=== PATIENT | female | born 1990 | race Two or more races ===

== ENCOUNTER 2019-11-23 17:33 | Emergency (ER) | payer MEDICAID, OTHER ==
[2019-11-23 18:51] VITALS: BP 112/63
== END 2019-11-23 19:25 | disposition home or self-care (01) ==
LOC: ER 17:33
DX: L01.00 Impetigo, unspecified (principal)

== ENCOUNTER 2020-03-12 11:16 | Emergency (ER) | payer MEDICAID ==
[~2020-03-12] VITALS: Ht 165.1 cm; Wt 72.6 kg
[2020-03-12 12:24] VITALS: BP 105/66
== END 2020-03-12 13:15 | disposition home or self-care (01) ==
LOC: ER 11:16
DX: L01.00 Impetigo, unspecified (principal)

== ENCOUNTER 2024-03-10 11:43 | Inpatient (IN) | payer MEDICAID ==
[~2024-03-10] VITALS: Ht 167.6 cm; Wt 70.3 kg
[2024-03-10 13:17] LABS: Basophils # (auto) 0.1 10 ^3/uL (0-0.2); Basophils % (auto) 0.6 % (0.0-2.0); Eosinophils # (auto) 0 10 ^3/uL (0-0.8); Eosinophils % (auto) 0.3 % (0.0-7.0); Hematocrit 41.3 % (36.0-46.0); Hemoglobin 14.5 g/dL (12.2-16.2); Lymphocytes # (auto) 0.6 10 ^3/uL (0.4-5.4); Lymphocytes % (auto) 5.8 % (10.0-50.0); Mean Corpuscular Hemoglobin 32.2 pg (28.0-32.0); Mean Corpuscular Hgb Conc. 35.1 g/dL (32.0-36.0); Mean Corpuscular Volume 91.6 fL (80.0-100.0); Monocytes # (auto) 0.5 10 ^3/uL (0-1.3); Monocytes % (auto) 4.8 % (0.0-12.0); Neutrophils # (auto) 9.8 10 ^3/uL (1.6-8.6); Neutrophils % (auto) 88.5 % (37.0-80.0); Platelet Count (auto) 241 10^3/uL (140-450); Red Cell Distribution Width 12.9 % (11.8-14.3); White Blood Cell 11.1 10^3/uL (4.4-10.8)
[2024-03-10 13:38] LABS: Alanine Aminotransferase 14 U/L (7-40); Alkaline Phosphatase 56 U/L (46-116); Calcium 9.1 mg/dL (8.7-10.4); Carbon Dioxide 22 mmol/L (20-31); Chloride 109 mmol/L (98-107)
[2024-03-10 13:39] LABS: Albumin 4.3 g/dL (3.2-4.8); Anion Gap 9 (5-15); Aspartate Aminotransferase 15 U/L (13-40); BUN/Creatinine Ratio 14.5 (10.0-20.0); Bilirubin, Total 1.1 mg/dL (0.2-1.0); Blood Urea Nitrogen 10 mg/dL (9-23); Glucose 102 mg/dL (74-106); Lipase 26 U/L (12-53); Potassium 3.4 mmol/L (3.5-5.1); Sodium 140 mmol/L (136-145); Total Protein 6.2 g/dL (5.7-8.2)
[2024-03-10 15:11] LABS: Urine Bacteria MOD /hpf (None Seen); Urine Blood 2+ /uL (Negative); Urine Clarity Turbid (Clear); Urine Color Yellow (Yellow); Urine Mucus MODERATE (None Seen); Urine Protein, UAD 1+ (Negative); Urine Specific Gravity 1.043 (1.001-1.035); Urine Urobilinogen 6 mg/dL (Negative); Urine WBC 4 /hpf (0 - 5)
[2024-03-10 15:17] LABS: Amphetamine Screen, Urine Neg (NEGATIVE); Benzodiazephine Screen, Urine Neg (NEGATIVE)
[2024-03-10 15:18] LABS: Barbiturate Scree,Urine Neg (NEGATIVE); Cannabinoid Screen, Urine Neg (NEGATIVE); Cocaine Screen, Urine Neg (NEGATIVE); Opiate Scree,Urine Neg (NEGATIVE); Phencyclidine Screen, Urine Neg (NEGATIVE)
[2024-03-10] MEDS ORDERED: TEMAZEPAM 15 MG CAP PO PRN (16:00)
[2024-03-10] MEDS ORDERED: ONDANSETRON HCL 4 MG/2 ML VIAL IV PRN (16:00)
[2024-03-10] MEDS: SODIUM CHLORIDE 0.9% 1,000 ML IV ONE (16:30)
[2024-03-10] MEDS: HYDROcodone-ACET 5/325MG TAB PO PRN (16:38)
[2024-03-10] MEDS: SOD CHL 0.9%/ KCL 20MEQ 1,000 ML IV ONE (17:27)
[2024-03-10] MEDS: cefTRIAXone 1GM/50ML D5W 50 ML IV ONE (17:29)
[2024-03-10] MEDS: KETOROLAC TROMETH 30 MG/ML 1ML VIAL IV ONE (17:51)
[2024-03-10 19:10] VITALS: PULSE 71; RESP 18; O2SAT 98
[2024-03-11] VITALS (7 sets, daily range): BP systolic 97–107; BP diastolic 54–69; PULSE 16–75; RESP 12–19; TEMP 98–98.5; O2SAT 96–100
[2024-03-11] MEDS: ACETAMINOPHEN 325 MG TAB PO PRN (04:45)
[2024-03-11 07:02] LABS: Basophils # (auto) 0 10 ^3/uL (0-0.2); Basophils % (auto) 0.2 % (0.0-2.0); Eosinophils # (auto) 0.1 10 ^3/uL (0-0.8); Eosinophils % (auto) 1.7 % (0.0-7.0); Hematocrit 34.8 % (36.0-46.0); Lymphocytes # (auto) 0.8 10 ^3/uL (0.4-5.4); Lymphocytes % (auto) 15.7 % (10.0-50.0); Mean Corpuscular Hemoglobin 31.7 pg (28.0-32.0); Mean Corpuscular Hgb Conc. 34.5 g/dL (32.0-36.0); Mean Corpuscular Volume 91.8 fL (80.0-100.0); Monocytes # (auto) 0.4 10 ^3/uL (0-1.3); Monocytes % (auto) 8.4 % (0.0-12.0); Neutrophils # (auto) 3.9 10 ^3/uL (1.6-8.6); Platelet Count (auto) 186 10^3/uL (140-450); Red Blood Cells 3.79 10^6/uL (4.0-5.20); Red Cell Distribution Width 13.2 % (11.8-14.3); White Blood Cell 5.2 10^3/uL (4.4-10.8)
[2024-03-11 07:24] LABS: Chloride 112 mmol/L (98-107); Potassium 3.5 mmol/L (3.5-5.1); Sodium 138 mmol/L (136-145)
[2024-03-11 07:25] LABS: Anion Gap 6 (5-15); Calcium 8.3 mg/dL (8.7-10.4); Carbon Dioxide 20 mmol/L (20-31)
[2024-03-11 07:30] LABS: Glucose 87 mg/dL (74-106)
[2024-03-11 07:31] LABS: BUN/Creatinine Ratio 8.5 (10.0-20.0); Blood Urea Nitrogen < 5 mg/dL (9-23)
[2024-03-11] MEDS: cefTRIAXone 1GM/50ML D5W 50 ML IV SCH (09:48)
[2024-03-11] MEDS: PANTOPRAZOLE 40 MG TAB PO ONE (10:43)
[2024-03-11] MEDS: DOXYCYCLINE 100 MG TAB/CAP PO ONE (17:56)
[2024-03-11] MEDS: DOXYCYCLINE 100 MG TAB/CAP PO SCH (21:02)
[2024-03-12 01:00] VITALS: BP 104/61; PULSE 76; RESP 19; TEMP 97.9; O2SAT 99
[2024-03-12] MEDS: PANTOPRAZOLE 40 MG TAB PO SCH (06:11)
[2024-03-12 08:00] VITALS: RESP 16
[2024-03-12 09:00] VITALS: BP 109/54; PULSE 85; RESP 18; TEMP 97.6; O2SAT 95
[2024-03-12 13:00] VITALS: BP 111/69; PULSE 64; RESP 16; TEMP 98.4; O2SAT 99
[2024-03-12] MEDS ORDERED: DOXY-111 PO (13:20)
[2024-03-14 08:06] LABS: RPR Non Reactive (Non Reactive)
== END 2024-03-12 16:20 | disposition home or self-care (01) | DRG 249 ==
LOC: ER 11:43 → OVERFLOW 15:56 → WEST WING 03-11 03:30
PROVIDERS: ADMIT Internal Medicine; ATTEND Internal Medicine
DX: K52.9 Noninfective gastroenteritis and colitis, unspecified (principal); N30.01 Acute cystitis with hematuria; N71.9 Inflammatory disease of uterus, unspecified; K42.9 Umbilical hernia without obstruction or gangrene; N73.9 Female pelvic inflammatory disease, unspecified; Z98.891 History of uterine scar from previous surgery; Z97.5 Presence of (intrauterine) contraceptive device
CPT/HCPCS: 36415; 74176; 76856; 80048; 80053; 80307; 81001; 82306; 82550; 82607; 83605; 83690; 84443; 84702; 85025; 86141; 86592; 86703; 86706; 86803; G0378; J1885

== ENCOUNTER 2024-09-09 09:04 | Day surgery (SDC) | payer MEDICAID ==
[2024-09-08 09:21] LABS: Basophils # (auto) 0 10 ^3/uL (0-0.2); Basophils % (auto) 0.5 % (0.0-2.0); Eosinophils # (auto) 0.1 10 ^3/uL (0-0.8); Hematocrit 42.1 % (36.0-46.0); Hemoglobin 14.5 g/dL (12.2-16.2); Lymphocytes # (auto) 2.5 10 ^3/uL (0.4-5.4); Lymphocytes % (auto) 35.6 % (10.0-50.0); Mean Corpuscular Hemoglobin 31.8 pg (28.0-32.0); Mean Corpuscular Hgb Conc. 34.4 g/dL (32.0-36.0); Mean Corpuscular Volume 92.5 fL (80.0-100.0); Monocytes # (auto) 0.3 10 ^3/uL (0-1.3); Monocytes % (auto) 4.9 % (0.0-12.0); Platelet Count (auto) 245 10^3/uL (140-450); Red Blood Cells 4.56 10^6/uL (4.0-5.20)
[2024-09-08 09:54] LABS: INR 1.06 (0.9-1.15); Partial Thromboplastin Time 29.8 SEC (24.5-34.5); Prothrombin Time 11.2 sec (9.3-11.8)
[2024-09-08 10:23] LABS: Alanine Aminotransferase 13 U/L (7-40); Albumin 4.7 g/dL (3.2-4.8); Alkaline Phosphatase 57 U/L (46-116); Anion Gap 5 (5-15); BUN/Creatinine Ratio 15.3 (10.0-20.0); Blood Urea Nitrogen 11 mg/dL (9-23); Calcium 9.9 mg/dL (8.7-10.4); Carbon Dioxide 27 mmol/L (20-31); Glucose 93 mg/dL (74-106); Potassium 4.4 mmol/L (3.5-5.1); Sodium 139 mmol/L (136-145); Total Protein 6.8 g/dL (5.7-8.2)
[2024-09-08 10:24] LABS: Bilirubin, Total 0.7 mg/dL (0.2-1.0)
[2024-09-08 10:25] LABS: Aspartate Aminotransferase 10 U/L (13-40); Chloride 107 mmol/L (98-107)
[~2024-09-09] VITALS: Ht 167.6 cm; Wt 61.2 kg
[~2024-09-09 09:04] MED LIST: CYAN100T7 PO; PANT40TA2 PO
[2024-09-09] MEDS: fentaNYL CITRATE 100 MCG/2 ML VL ONE (13:05)
[2024-09-09] MEDS: MIDAZOLAM HCL 2MG/2ML 2ml VIAL (1mg/ml) ONE (13:05)
[2024-09-09 13:16] VITALS: TEMP 98
--- NOTE | 2024-09-09 13:16 | DVHNC2 ---
Procedure - DATE OF PROCEDURE:09/09/2024 PROCEDURE PERFORMED BY: ARUNA ESPINOZA MD REFERRING PROVIDER: Dr Nichols PROCEDURE PERFORMED: 1. ESOPHAGOGASTRODUODENOSCOPY WITH MODERATE SEDATION 2. ESOPHAGOGASTRODUODENOSCOPY WITH BIOPSY PRE-PROCEDURE DIAGNOSIS: 1. Epigastric abdominal pain 2. History of NSAID use POSTPROCEDURE DIAGNOSIS: 1. Normal duodenum to 2nd portion 2. Mild erosive gastritis biopsies taken 3. Mild erosive esophagitis INDICATIONS FOR PROCEDURE: The patient is a 34-year-old female with a history of epigastric abdominal pain who presents for outpatient endoscopy. MEDICATIONS USED:6 mg of Versed and 50mcg of fentanyl IV were given in incremental doses DETAILS OF THE PROCEDURE: Informed consent was obtained after risks, benefits, and alternatives were discussed at length with the patient. The patient gave consent to the procedure as well as the medication used for sedation. The patient was placed in left lateral decubitus position. An Olympus endoscope was inserted into the oropharynx and advanced into the esophagus, then into the stomach, then into the duodenal bulb and duodenum. The duodenal bulb and duodenum were normal. Biopsies were taken given the patient's symptoms of abdominal pain. The scope was then withdrawn. The stomach showed mild erosive gastritis. Biopsies were taken to be sent for pathology. Retroflexion showed no abnormalities. The scope was then withdrawn. Patient had LA grade A erosive esophagitis, the Z-line was at 38 cm. The scope was then withdrawn. Mid and proximal esophagus was normal in appearance. The patient tolerated the proce dure well. IMPRESSION: 1. Mild erosive esophagitis 2. Mild erosive gastritis RECOMMENDATIONS: 1. Follow up with biopsy results 2. Anti-reflux precautions 3. Follow-up in GI clinic 4. Avoid aspirin, NSAIDs, spicy food, caffeine, tomatoes, citrus. 5. Patient should be on a proton pump inhibitor daily 6. Consider further workup for dysphagia if abdominal pain persists I WOULD LIKE TO THANK DR. Nichols FOR THIS REFERRAL ARUNA ESPINOZA MD Sep 09, 2024 13:16
[2024-09-09 14:23] VITALS: BP 107/74; PULSE 70; RESP 15; O2SAT 100
== END 2024-09-09 14:30 | disposition home or self-care (01) ==
LOC: GI 09:04
PROVIDERS: ATTEND Specialist
DX: R10.13 Epigastric pain (principal); K29.50 Unspecified chronic gastritis without bleeding; K21.00 Gastro-esophageal reflux disease with esophagitis, without bleeding; F17.210 Nicotine dependence, cigarettes, uncomplicated; Z86.2 Personal history of diseases of the blood and blood-forming organs and certain disorders involving the immune mechanism; Z98.890 Other specified postprocedural states
CPT/HCPCS: 36415; 43239; 80053; 84702; 85025; 85610; 85730; 88305; 88312; 88342; J2250; J3010; 99152

== ENCOUNTER 2024-09-20 10:53 | Emergency (ER) | payer MEDICAID ==
[~2024-09-20] VITALS: Ht 160 cm; Wt 59.2 kg
[2024-09-20 12:52] VITALS: BP 107/70; PULSE 71; RESP 16; TEMP 98; O2SAT 99
[2024-09-20] MEDS: ceFAZolin IM 1GM/2.5ML STERILE WATER IM ONE (13:15)
[2024-09-20] MEDS: LIDOCAINE 1% HCL (LOCAL ANESTH.) INJ 20ML MDV ID ONE (13:15)
[2024-09-20] MEDS: cefTRIAXone SOD 1,000 MG VL IM ONE (14:21)
[2024-09-20] MEDS: KETOROLAC TROMETH 30 MG/ML 1ML VIAL IM ONE (14:21)
[2024-09-20] MEDS ORDERED: ACET500T58 PO (15:19)
[2024-09-20] MEDS ORDERED: CIPR-173 PO (15:19)
--- NOTE | 2024-09-20 15:20 | ED.PDOC ---
Eye-HPI HPI Comments A 34-year-old female with a history of gastritis and anemia presents with a chief complaint of a possible abscess behind the left earlobe. Patient complains of pain that started three days ago. Aggravated a touch and patient reports pain radiates to the left side of her face.. Denies blunt trauma (hand blow to the ear, fall, direct hit) Denies penetrating trauma (Q-tip use, match-stick, gunshot wound, welding spark) Denies ear trauma Denies barotrauma Denies blast injury Denies air travel Denies scuba diving Denies hearing loss Denies persistent ringing in the ear Denies fever chills night sweats unintentional weight loss Denies nausea vomiting severe headache or recent vision changes Chief Complaint: Headache Time Seen by MD: 11:26 Primary Care Provider: ELKIN Greenberg Notes: Nurses Notes, Medications, Allergies Allergies: Coded Allergies: NO KNOWN ALLERGIES (Unverified , 11/23/19) Home Meds Reported Medications Cyanocobalamin (Vitamin B12) Unknown Strength Tab, PO, TAB 09/08/24 Pantoprazole Sodium Sesquihydr (Protonix) 40 Mg Tab, 40 MG PO DAILY, #30 TAB 09/08/24 Information Source: Patient Mode of Arrival: Ambulatory Past Medical History PAST MEDICAL HISTORY: Denies 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 2 x 3 cm abscess. Fluctuant. Tender to palpation. No signs of mastoiditis. Mastoiditis nontender.) Neck: Full Range of Motion, Non-Tender, Normal, Normal Inspection Respiratory: Chest Non-Tender, Lungs Clear, No Accessory Muscle Use, No Respiratory Distress, Normal Breath Sounds Cardiovascular: No Edema, No JVD, No Murmur, No Gallop, Normal Peripheral Pu lses, Regular Rate/Rhythm Breast Exam: Deferred Gastrointestinal: No Organomegaly, Non Tender, No Pulsatile Mass, Normal Bowel Sounds, Soft Genitalia: Deferred Pelvic: Deferred Rectal: Deferred Extremities: No calf tenderness, Normal capillary refill, Normal inspection, Normal range of motion, Non-tender, No pedal edema Musculoskeletal : Apperance: Normal Neurologic: Alert, 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 Was a procedure done?: Yes Sedation Sedation?: No Incision and Drainage Incision and Drainage: Abscess Location Left posterior earlobe Anesthetic: Lidocaine Preparation: Betadine, Saline Incision and Wound: Pus Informed consent obtained: Yes Risks/benefits/alt described: Yes EENT DIFF Eye: Other X-Ray, Labs, Meds, VS Vital Signs Date Time Temp Pulse Resp B/P (MAP) Pulse Ox O2 Delivery O2 Flow Rate FiO2 09/20/24 12:52 98.0 71 16 107/70 (82) 99 98.0 09/20/24 12:52 71 16 99 Room Air 09/20/24 11:30 98.0 71 16 107/70 (82) 99 98.0 Current Medications Medications (Trade) Dose Ordered Sig/Zackery Route Start Time Stop Time Status Last Admin Cefazolin Sodium (Ancef Intramuscular) 1 gm ONCE ONCE IM 09/20/24 13:15 09/20/24 14:18 DC 09/20/24 13:15 Lidocaine HCl (Xylocaine 1%) 4 ml ONCE ONCE ID 09/20/24 13:15 09/20/24 13:16 DC 09/20/24 13:15 Ceftriaxone Sodium (Rocephin) 1,000 mg ONCE ONCE IM 09/20/24 14:30 09/20/24 14:31 DC 09/20/24 14:21 Ketorolac Tromethamine (Toradol Injection) 30 mg ONCE ONCE IM 09/20/24 14:30 09/20/24 14:31 DC 09/20/24 14:21 X-Ray, Labs, Meds, VS Comment This patient presents with signs and symptoms consistent with a cutaneous abscess behind the ear lobe. The abscess is localized without any evidence of deep soft tissue infection based on physical examination. The patient required incision and drainage. Differential diagnosis considered but not limited to: abscess, folliculitis, cellulitis. I also considered deep space infection, necrotizing fasciitis, sepsis, however, this is less likely as the patient does not have rapid expanding erythema or pain out of proportion to suggest necrotizing fasciitis. There is no evidence of sepsis on both a review of their vitals and clinical exam. No mastoiditis. Procedure Note: Verbal informed consent was obtained from the patient. I discussed the indications, benefits, alternatives and complications to performing an incision and drainage. The patient understands the risks include, but are not limited to scarring, underlying structure injury, bleeding, nerve injury, new infection, and resultant disability. The skin overlying the abscess was prepared with B etadine The skin surrounding the abscess was locally anesthetized using 1% Lidocaine An incision using a number 11 blade scalpel was made overlying the abscess. The incision was 0.5 cm long. Incision and drainage was successful. Careful exploration of the abscess cavity demonstrated no foreign body. The wound was then dressed with sterile gauze. The wound was hemostatic at the conclusion of the procedure. The patient did not appear to suffer any complications as a result of the procedure. The patient was given ciprofloxacin 300 mg Q 8 x 10 days and will f/u with PMD 3-5 days or return to the ER sooner if it worsens. The patient was counseled in regard to the diagnosis and management of the condition and verbalized understanding of this. The patient understands to return to the ER or seek immediate medical attention if the symptoms worsen. Time of 1ST Reevaluation: 15:14 Reevaluation 1ST: Improved Patient Education/Counseling: Diagnosis, Treatment Family Education/Counseling: Diagnosis, Treatment Departure 1 Departure Time of Disposition: 15:17 Impression: Primary Impression: Abscess, earlobe Qualified Codes: H60.02 - Abscess of left external ear Disposition: 01 HOME / SELF CARE / HOMELESS Condition: Fair e-Prescriptions Acetaminophen (Acetaminophen) 500 Mg Tab 500 MG PO Q6HP PRN for 10 Days, #40 TAB 0 Refills Prov: JOHN BATISTA ELECTRICAL SIGN WIRER 09/20/24 Ciprofloxacin Hcl (Cipro) 500 Mg Tab 1 TAB PO BID for 10 Days, #20 TAB 0 Refills Prov: JOHN BATISTA ELECTRICAL SIGN WIRER 09/20/24 Critical Care Note Critical Care Time?: No Stability Stability form required: No Heart Score Heart Score: Heart Score Response (Comments) Value History N/A 0 EKG N/A 0 Age N/A 0 Risk Factors N/A 0 Troponin N/A 0 Total 0 JOHN BATISTA ELECTRICAL SIGN WIRER Sep 20, 2024 15:20
== END 2024-09-20 15:25 | disposition home or self-care (01) ==
LOC: ER 11:04
DX: H60.02 Abscess of left external ear (principal); Z98.890 Other specified postprocedural states; Z79.899 Other long term (current) drug therapy
CPT/HCPCS: 69000; 96372; 99284; J0690; J0696; J1885; J2003

== ENCOUNTER → 2024-10-02 | Outpatient (CLI) | payer MEDICAID ==
[~2024-10-02] MED LIST changes: +ACET500T58 PO; +CIPR-173 PO
== END | disposition home or self-care (01) ==
LOC: LAB 12:08
PROVIDERS: ATTEND Internal Medicine
DX: E53.8 Deficiency of other specified B group vitamins (principal)
CPT/HCPCS: 82607

== ENCOUNTER 2024-12-01 00:36 | Emergency (ER) | payer MEDICAID ==
[~2024-12-01] VITALS: Ht 160 cm; Wt 61.0 kg
--- NOTE | 2024-12-01 01:03 | ED.PDOC ---
History of Present Illness(SKN HPI Comments PT PRESENTED TO ED FOR RIGHT INGUINAL AREA PAIN AND SACRAL LUMP WITH DRAINAGE X4 DAY. Time Seen by MD: 00:55 Primary Care Provider: ELKIN History of Present Illness: Nurses Notes, Medications, Allergies Allergies: Coded Allergies: NO KNOWN ALLERGIES (Unverified , 11/23/19) Home Meds Active Scripts Ibuprofen (Ibuprofen) 800 Mg Tab, 800 MG PO Q8HP PRN for 5 Days, #15 TAB Prov:SIMA CAPONE SHEETMETAL TRADES WORKER 12/01/24 Doxycycline Hyclate (Doxycycline Hyclate) 100 Mg Cap, 100 MG PO BID for 7 Days, #14 CAP Prov:SIMA CAPONE SHEETMETAL TRADES WORKER 12/01/24 Acetaminophen (Acetaminophen) 500 Mg Tab, 500 MG PO Q6HP PRN for 10 Days, #40 TAB 0 Refills Prov:JOHN BATISTA EXHIBITIONS AND COLLECTIONS MANAGER 09/20/24 Ciprofloxacin Hcl (Cipro) 500 Mg Tab, 1 TAB PO BID for 10 Days, #20 TAB 0 Refills Prov:JOHN BATISTA EXHIBITIONS AND COLLECTIONS MANAGER 09/20/24 Reported Medications Cyanocobalamin (Vitamin B12) Unknown Strength Tab, PO, TAB 09/08/24 Pantoprazole Sodium Sesquihydr (Protonix) 40 Mg Tab, 40 MG PO DAILY, #30 TAB 09/08/24 Information Source: Patient Past Medical History PAST MEDICAL HISTORY: Denies 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 Family History Family History: Reviewed,noncontributory to illness, No family hx of Cancer, No family hx of DM, No family hx of Heart karel, No family hx of HTN, No family hx ofKidney karel, No family hx of Liver karel, No family hx of Lung karel, No family hx of Stroke Social History Smoker: Non-Smoker Alcohol: Denies ETOH Use Drugs: Denies Drug Use Lives In: Home Constitutional: denies: chills, diaphoresis, fatigue, fever, malaise, sweats, weakness, others EENTM: denies: blurred vision, double vision, ear bleeding, ear discharge, ear drainage, ear pain, ear ringing, eye pain, eye redness, hearing loss, mouth pain, mouth swelling, nasal discharge, nose bleeding, nose congestion, nose pain, photophobia, tearing, throat pain, throat swelling, voice changes, others Respiratory: denies: cough, hemoptysis, orthopnea, SOB at rest, shortness of breath, SOB with excertion, stridor, wheezing, others Cardiovascular: denies: chest pain, dizzy spells, diaphoresis, Dyspnea on exertion, edema, irregular heart beat, left arm pain, lightheadedness, palpitations, PND, syncope, others Gastrointestinal: denies: abdomen distended, abdominal pain, blood streaked bowels, constipated, diarrhea, dysphagia, difficulty swallowing, hematemesis, melena, nausea, poor appetite, poor fluid intake, rectal bleeding, rectal pain, vomiting, others Genitourinary: denies: abnormal vagina bleeding, burning, dyspareunia, dysuria, flank pain, frequency, hematuria, incontinence, pain, , vagina discharge, urgency, others Neurological: denies: dizziness, fainting, headache, left sided numbness, left sided weakness, numbness, paresthesia, pre-existing deficit, right sided numbness, right sided weakness, seizure, speech problems, tingling, tremors, weakness, others Musculoskeletal: denies: back pain, gout, joint pain, joint swelling, muscle pain, muscle stiffness, neck pain, others Integumetry: reports: lumps (COCCYX AREA AND RIGHT INGUINAL); denies: bruises, change in color, change in hair/nails, dryness, laceration, lesions, rash, wounds, others Allergic/Immunocompromised: denies: Difficulty Healing, Frequent Infections, Hives, Itching, others Hematologic/Lymphatic: denies: anemia, blood clots, easy bleeding, easy bruising, swollen glands, others Endocrine: denies: excessive hunger, excessive sweating, excessive thirst, excessive urination, flushing, intolerance to cold, intolerance to heat, unexplained weight gain, unexplained weight loss, others Psychiatric: denies: anxiety, bipolar disorder, depression, hopeless, panic disorder, schizophrenia, sleepless, suicidal, others Physical Exam General Appearance: No Apparent Distress, Normal HEENT: Pharynx Normal Neck: Full Range of Motion, Non-Tender Respiratory: Lungs Clear, No Respiratory Distress, Normal Breath Sounds Cardiovascular: No Edema, No JVD, No Murmur, No Gallop, Normal Peripheral Pulses, Regular Rate/Rhythm Breast Exam: Deferred Gastrointestinal: No Organomegaly, Non Tender, No Pulsatile Mass, Normal Bowel Sounds, Soft Genitalia: Deferred Pelvic: Deferred Rectal: Deferred Extremities: No calf tenderness, Normal capillary refill, Normal inspection, Normal range of motion, Non-tender, No pedal edema Musculoskeletal : Apperance: Normal Neurologic: Alert, system controller II-XII nml as Tested, No Motor Deficits, Normal Affect, Normal Mood, No Sensory Deficits Cerebellar Function: Normal Reflexes: Normal Skin: Dry, Normal Color, Warm, Wounds (PILONIDAL CYST TENDER ON PALPATION NON FLUCTUANT TRACE ERYTHEMA NO CENTRAL OPENING NO NOTED STREAKING NO NOTED DRAINAGE) Lymphatic: Inguinal Node Tender (R), No Adenopathy Was a procedure done? Was a procedure done?: No Differential Diagnosis (INTG) Differential Diagnosis: Abrasion, Cellulitis Differential Diagnosis: Abscess X-Ray, Labs, Meds, VS Vital Signs Date Time Temp Pulse Resp B/P (MAP) Pulse Ox O2 Delivery O2 Flow Rate FiO2 12/01/24 01:05 97.9 70 18 115/72 (86) 99 97.9 X-Ray, Labs, Meds, VS Comment TRIAL WARM WATER SOAKS SEVERAL TIMES DAILY WE WILL SCRIPT TRIAL OF DOXYCYCLINE ADVISED TAKE MEDICATION PRESCRIBED SIDE EFFECTS DISCUSSED. ADVISED TO FOLLOW UP WITH HER PCP IN 2-3 DAYS FOR RE-EVALUATION. ER RETURN PRECAUTIONS GIVEN PATIENT INDICATES UNDERSTANDING AND AGREES WITH DISCHARGE PLAN OF CARE. Time of 1ST Reevaluation: 00:55 Reevaluation 1ST: Unchanged Reevaluation 2ND: Improved Patient Education/Counseling: Diagnosis, Treatment, Prognosis, Need For Follow Up Family Education/Counseling: Diagnosis, Treatment, Prognosis, Need For Follow Up SEPSIS Sepsis Screen Vital Signs Date Time Temp Pulse Resp B/P (MAP) Pulse Ox O2 Delivery O2 Flow Rate FiO2 12/01/24 01:05 97.9 70 18 115/72 (86) 99 97.9 Departure 1 Departure Time of Disposition: 01:03 Impression: Primary Impression: Inguinal adenopathy Additional Impression: Pilonidal cyst Disposition: 01 HOME / SELF CARE / HOMELESS Condition: Stable e-Prescriptions Ibuprofen (Ibuprofen) 800 Mg Tab 800 MG PO Q8HP PRN for 5 Days, #15 TAB Prov: SIMA CAPONE SHEETMETAL TRADES WORKER 12/01/24 Doxycycline Hyclate (Doxycycline Hyclate) 100 Mg Cap 100 MG PO BID for 7 Days, #14 CAP Prov: SIMA CAPONE SHEETMETAL TRADES WORKER 6/27/25 Discharged With: Self Critical Care Note Critical Care Time?: No Stability Stability form required: SIMA Zafar Dec 01, 2024 01:03
[2024-12-01 01:05] VITALS: BP 115/72; PULSE 70; RESP 18; TEMP 97.9; O2SAT 99
[2024-12-01] MEDS ORDERED: DOXY100C4 PO (01:06)
[2024-12-01] MEDS ORDERED: IBUP-1456 PO (01:06)
[2024-12-01] MEDS: KETOROLAC TROMETH 60MG/2ML VIAL IM ONE (01:13)
== END 2024-12-01 01:20 | disposition home or self-care (01) ==
LOC: ER 00:36
DX: R59.0 Localized enlarged lymph nodes (principal); L05.91 Pilonidal cyst without abscess; Z79.899 Other long term (current) drug therapy; Z98.890 Other specified postprocedural states; Z87.42 Personal history of other diseases of the female genital tract
CPT/HCPCS: 96372; 99283; J1885

== ENCOUNTER → 2024-12-04 | Outpatient (CLI) | payer MEDICAID ==
[~2024-12-04] MED LIST changes: +DOXY100C4 PO; +IBUP-1456 PO
[2024-12-04 16:24] LABS: Basophils # (auto) 0.1 10 ^3/uL (0-0.2); Basophils % (auto) 0.6 % (0.0-2.0); Eosinophils # (auto) 0.2 10 ^3/uL (0-0.8); Eosinophils % (auto) 1.9 % (0.0-7.0); Hematocrit 42.2 % (36.0-46.0); Hemoglobin 14.9 g/dL (12.2-16.2); Lymphocytes # (auto) 2.4 10 ^3/uL (0.4-5.4); Mean Corpuscular Hemoglobin 31.8 pg (28.0-32.0); Mean Corpuscular Hgb Conc. 35.2 g/dL (32.0-36.0); Mean Corpuscular Volume 90.4 fL (80.0-100.0); Monocytes # (auto) 0.3 10 ^3/uL (0-1.3); Neutrophils # (auto) 5.5 10 ^3/uL (1.6-8.6); Neutrophils % (auto) 65.5 % (37.0-80.0); Platelet Count (auto) 266 10^3/uL (140-450); Red Blood Cells 4.68 10^6/uL (4.0-5.20); Red Cell Distribution Width 12.9 % (11.8-14.3); White Blood Cell 8.5 10^3/uL (4.4-10.8)
[2024-12-04 17:00] LABS: Alanine Aminotransferase 12 U/L (7-40); Albumin 4.8 g/dL (3.2-4.8); Alkaline Phosphatase 62 U/L (46-116); Anion Gap 7 (5-15); Aspartate Aminotransferase 13 U/L (13-40); BUN/Creatinine Ratio 11.2 (10.0-20.0); Bilirubin, Total 0.4 mg/dL (0.2-1.0); Blood Urea Nitrogen 10 mg/dL (9-23); Calcium 10.1 mg/dL (8.7-10.4); Carbon Dioxide 25 mmol/L (20-31); Chloride 107 mmol/L (98-107); Glucose 85 mg/dL (74-106); Potassium 4.2 mmol/L (3.5-5.1); Sodium 139 mmol/L (136-145); Total Protein 7.1 g/dL (5.7-8.2)
== END | disposition home or self-care (01) ==
LOC: LAB 16:06
PROVIDERS: ATTEND Internal Medicine
DX: L05.01 Pilonidal cyst with abscess (principal); Z79.899 Other long term (current) drug therapy
CPT/HCPCS: 36415; 80053; 83036; 85025

== ENCOUNTER → 2025-03-28 | Outpatient (CLI) | payer MEDICAID ==
[~2025-03-28] MED LIST changes: -DOXY100C4 PO; -IBUP-1456 PO
[2025-03-28 16:04] LABS: Hematocrit 39.1 % (36.0-46.0); Hemoglobin 13.8 g/dL (12.2-16.2); Mean Corpuscular Hemoglobin 32.1 pg (28.0-32.0); Mean Corpuscular Volume 91.2 fL (80.0-100.0); Nucleated Red Blood Cells % 0.1 %
[2025-03-28 16:21] LABS: Alanine Aminotransferase 10 U/L (7-40); Albumin 4.2 g/dL (3.2-4.8); Alkaline Phosphatase 57 U/L (46-116); Anion Gap 7 (5-15); BUN/Creatinine Ratio 13.7 (10.0-20.0); Blood Urea Nitrogen 10 mg/dL (9-23); Calcium 9.3 mg/dL (8.7-10.4); Carbon Dioxide 29 mmol/L (20-31); Glucose 89 mg/dL (74-106); Potassium 3.7 mmol/L (3.5-5.1); Sodium 144 mmol/L (136-145); Total Protein 6.6 g/dL (5.7-8.2)
[2025-03-28 16:22] LABS: Bilirubin, Total 0.5 mg/dL (0.2-1.0)
[2025-03-28 16:23] LABS: Chloride 108 mmol/L (98-107)
== END | disposition home or self-care (01) ==
LOC: LAB 14:48
PROVIDERS: ATTEND Internal Medicine
DX: Z00.01 Encounter for general adult medical examination with abnormal findings (principal)
CPT/HCPCS: 36415; 80053; 82306; 82607; 85025